=== PATIENT | female | born 1980 | race American Indian/Alaskan Native ===

== ENCOUNTER 2018-09-16 18:35 | Inpatient (IN) | payer BC ==
[2018-09-16] MEDS ORDERED: Nalbuphine 20 MG/ML 1 ML Syringe IVPUSH PRN (19:12)
[2018-09-16] MEDS ORDERED: Ondansetron 4 MG/2 ML SDV IVPUSH PRN ×2 (19:12→23:04)
[2018-09-16] MEDS ORDERED: Lidocaine 1% 50 ML MDV INJECT ONE (19:12)
[2018-09-16] MEDS ORDERED: Sodium Chloride 0.9% 10 ML Syringe FLUSH PRN (19:12)
[2018-09-16] MEDS ORDERED: Oxytocin/Lactated Ringers 10 UNIT/1,000 ML BAG IV SCH ×2 (19:15→21:46)
[2018-09-16] MEDS ORDERED: Ampicillin 2 GM in Sodium Chloride 0.9% 100 ML IV ONE (19:30)
[2018-09-16] MEDS: Lactated Ringers 1,000 ML IV SCH ×2 (19:34→23:47)
[2018-09-16] MEDS ORDERED: fentaNYL 100 MCG/2 ML SDV EPIDUR PRN (23:04)
[2018-09-16] MEDS ORDERED: diphenhydrAMINE 50 MG/ML SDV IVPUSH PRN (23:04)
[2018-09-16] MEDS ORDERED: ePHEDrine 50 MG/ML SDV IVPUSH PRN (23:04)
[2018-09-16] MEDS ORDERED: fentaNYL/Bupivacaine-NS 2 MCG/ML-0.125%/PF 100 ML Bag EPIDUR ONE (23:04)
[2018-09-16] MEDS ORDERED: Ampicillin 1 GM in Sodium Chloride 0.9% 100 ML IV SCH (23:30)
--- NOTE | 2018-09-16 23:40 | PCM.PREANE ---
Preanesthetic Assessment - Anesthesia/Transfusion/Family Hx Anesthesia History: Prior Anesthesia Without Reaction Family History of Anesthesia Reaction: No Transfusion History: No Prior Transfusion(s) - Review of Systems General: No Symptoms Pulmonary: No Symptoms Cardiovascular: No Symptoms Gastrointestinal: No Symptoms (Heart burn at night following eating. ) Neurological: No Symptoms Other: Reports: Depression (Bipolar, history of drug abuse. ) - Physical Assessment O2 Sat by Pulse Oximetry: 98 Respiratory Rate: 16 Vital Signs: Last Vital Signs Temp 36.2 C 09/16/18 19:12 Pulse 62 09/16/18 19:12 Resp 16 09/16/18 19:12 BP 121/59 L 09/16/18 19:12 Pulse Ox Height: 1.73 m Weight: 96.026 kg ASA Class: 2 Mental Status: Alert & Oriented x3 Airway Class: Mallampati = 1 Dentition: Reports: Normal Dentition Thyro-Mental Finger Breadths: 3 Mouth Opening Finger Breadths: 3 ROM/Head Extension: Full Lungs: Clear to Auscultation, Normal Respiratory Effort Cardiovascular: Regular Rate, Regular Rhythm - Lab Values: Laboratory Last Values WBC 4.66 K/mm3 (3.98-10.04) 09/16/18 19:25 RBC 3.77 M/mm3 (3.98-5.22) L 09/16/18 19:25 Hgb 12.1 gm/L (11.2-15.7) 09/16/18 19:25 Hct 35.9 % (34.1-44.9) 09/16/18 19:25 MCV 95.2 fl (79.4-94.8) H 09/16/18 19:25 MCH 32.1 pg (25.6-32.2) 09/16/18 19:25 MCHC 33.7 g/dl (32.2-35.5) 09/16/18 19:25 RDW Std Deviation 47.2 fL (36.4-46.3) H 09/16/18 19:25 Plt Count 231 K/mm3 (182-369) 09/16/18 19:25 MPV 10.2 fl (9.4-12.3) 09/16/18 19:25 Neut % (Auto) 68.8 % (34.0-71.1) 09/16/18 19:25 Lymph % (Auto) 24.5 % (19.3-51.7) 09/16/18 19:25 [place] % (Auto) 5.4 % (4.7-12.5) 09/16/18 19:25 Eos % (Auto) 1.1 (0.7-5.8) 09/16/18 19:25 Baso % (Auto) 0.2 % (0.1-1.2) 09/16/18 19:25 Neut # (Auto) 3.21 K/mm3 (1.56-6.13) 09/16/18 19:25 Lymph # (Auto) 1.14 K/mm3 (1.18-3.74) L 09/16/18 19:25 [place] # (Auto) 0.25 K/mm3 (0.24-0.36) 09/16/18 19:25 Eos # (Auto) 0.05 K/mm3 (0.04-0.36) 09/16/18 19:25 Baso # (Auto) 0.01 K/mm3 (0.01-0.08) 09/16/18 19:25 RPR Non-reactive (NONREACTIVE) 09/16/18 19:25 - Allergies Allergies/Adverse Reactions: Allergies Allergy/AdvReac Type Severity Reaction Status Date / Time No Known Allergies Allergy Verified 09/16/18 19:02 - Acknowledgements Anesthesia Type Planned: Epidural Pt an Appropriate Candidate for the Planned Anesthesia: Yes Alternatives and Risks of Anesthesia Discussed w Pt/Guardian: Yes Pt/Guardian Understands and Agrees with Anesthesia Plan: Yes PreAnesthesia Questionnaire - Past Health History Medical/Surgical History: Denies Medical/Surgical History Gastrointestinal History: Reports: Other (See Below) Other Gastrointestinal History: kink in the intestines HEAD CHARGER History: Reports: Psychiatric History: Reports: Bipolar, Depression Other Psychiatric History: self diagnosed - Infectious Disease History Infectious Disease History: Reports: Chicken Pox, Measles - Past Surgical History HEENT Surgical History: Reports: Oral Surgery Other HEENT Surgeries/Procedures: wisdom teeth GI Surgical History: Reports: None - SUBSTANCE USE Smoking Status *Q: Never Smoker Second Hand Smoke Exposure: No Recreational Drug Use History: Yes - HOME MEDS Home Medications: Home Meds Cholecalciferol (Vitamin D3) [Vitamin D3] 400 unit PO DAILY 09/16/18 [History] PNV95/Ferrous Fumarate/FA [ Vitamin Tablet] 1 tab PO DAILY 09/16/18 [ History] - CURRENT (IN HOUSE) MEDS Current Meds: Current Medications Diphenhydramine HCl (Benadryl) 25 mg IVPUSH Q6H PRN PRN Reason: Pruritis Ephedrine Sulfate (Ephedrine Sulfate) 5 mg IVPUSH ASDIRECTED PRN PRN Reason: Hypotension Fentanyl (Sublimaze) 100 mcg EPIDUR ONETIME PRN PRN Reason: Pain Last Admin: 09/16/18 23:37 Dose: 100 mcg Ampicillin Sodium 1 gm/ Sodium (Chloride) 100 mls @ 200 mls/hr IV Q4H ROSITA Lactated Ringer's (Ringers, Lactated) 1,000 mls @ 100 mls/hr IV ASDIRECTED ROSITA Last Admin: 09/16/18 19:34 Dose: 100 mls/hr Oxytocin/Lactated Ringer's (Pitocin In Lr 10 Units/1,000 Ml) 10 unit in 1,000 mls @ 500 mls/hr IV ASDIRECTED ROSITA Oxytocin/Lactated Ringer's (Pitocin In Lr 10 Units/1,000 Ml) 10 unit in 1,000 mls @ 12 mls/hr IV TITRATE ROSITA; Protocol Last Admin: 09/16/18 22:02 Dose: 2 munits/min, 12 mls/hr Nalbuphine HCl (Nubain) 10 mg IVPUSH Q2H PRN PRN Reason: pain Ondansetron HCl (Zofran) 4 mg IVPUSH Q4H PRN PRN Reason: Nausea/Vomiting Ondansetron HCl (Zofran) 4 mg IVPUSH ONETIME PRN PRN Reason: Nausea/Vomiting Sodium Chloride (Saline Flush) 10 ml FLUSH ASDIRECTED PRN PRN Reason: Keep Vein Open Discontinued Medications Fentanyl/Bupivacaine HCl (Wsfzutvz-Wtnxr-Fd 2 Mcg/Ml-0.125%) 100 ml EPIDUR ONETIME ONE Stop: 09/16/18 23:05 Last Admin: 09/16/18 23:37 Dose: 100 ml Ampicillin Sodium 2 gm/ Sodium (Chloride) 100 mls @ 200 mls/hr IV ONETIME ONE Stop: 09/16/18 19:59 Last Admin: 09/16/18 19:34 Dose: 200 mls/hr Lidocaine HCl (Xylocaine 1%) 50 ml INJECT ONETIME ONE Stop: 09/16/18 19:13
--- NOTE | 2018-09-17 00:47 | PCM.SN ---
- Free Text/Narrative Note: Suzanne is a 38-year-old multigravida female who came in labor and delivery on the evening of 09/16/2018 with spontaneous rupture membranes in early labor. She is 39-1/7 weeks with an MATTHEW of 09/23/2018. Patient was given a small amount of Pitocin to augment her labor. She underwent epidural analgesia placement and received good results from this. She went on to complete cervical dilation and at 0022 hours on 09/17/2018 she delivered a viable, taylor, female infant with Apgars of 8 and 9, weight of 3220 g (7 pounds 12.2 ounces), a length of 20.5 cm in the left occiput anterior position. She delivered over an essentially intact perineum. Baby was completely delivered, placed on mom's abdomen and nose and mouth were bulb suctioned. Cord was allowed to pulsate 1 minute and then was clamped 2 and cut by the patient's . Is noted to have a true knot in the cord. 3 vessels were noted in the cord. Pitocin was started IV to facilitate increase in uterine tone and decreased likelihood of bleeding. The perineum was evaluated and no significant lacerations were noted. The placenta delivered at 0028 hours on 09/17/2018 in a Biggs presentation, appeared intact and complete and was discarded per patient desire. 100 mL. Patient plans to breast-feed. Condition: Good
--- NOTE | 2018-09-17 01:07 | PCM.LDHP ---
L&D History of Present Illness - General Date of Service: 09/16/18 Admit Problem/Dx: Patient Status Order with Admit Dx/Problem 09/16/18 19:12 Patient Status [ADT] Routine Admission Diagnosis/Problem Admission Diagnosis/Problem Normal labor 09/17/18 01:00 38 year old 7 para 3033 Serbian female admitted at 39-0/7 weeks gestational age with an MATTHEW of 09/23/2018 in active labor with gross spontaneous rupture membranes. Source of Information: Patient History Limitations: Reports: No Limitations - History of Present Illness Introduction:: Suzanne 38-year-old 7 para 3033. Female who just yesterday transferred her care from [facility] in [place], [place] to [facility] in [place]. She is seen in labor and delivery on the evening of 09/16/2018 with reported gross spontaneous rupture membranes. Patient is noted to have a large amount of vaginal fluid which is clear in nature. She is denny about every 10 minutes upon admission. OB/hx per chart and history shows 3 normal spontaneous vaginal deliveries. She labored for 18 hours with first child, 2 hours with her second child in 4 hours with her third child. Care was with [facility] in [place], [place].She apparently has had regular care. Has shown good fundal height growth. Laboratory testing shows negative antibody screen. She is rubella immune. RPR is nonreactive. Urine culture was negative. Hepatitis B surface antigen and HIV assay were both negative. Second trimester laboratory tests showed hemoglobin is 11.4. Platelets were 226,000. One-hour GTT was normal at 115 mg/dL group B strep was positive and patient is not allergic to penicillin. Allergies none Medications: 1. vitamins 2. Vitamin D drops. Past medical history: 1. History of bipolar disorder 2. History of depression. 3. 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 Father is alive with history of lymphomatreated and appears to be cured. 4 brothers and 1 sister alive and well. Maternal grandfather is secondary to heart disease and myocardial infarction in his 70s. Maternal grandmother is no further medical issues. Paternal grandfather is deceasedwas murdered. Paternal grandmother is alive with diabetes and history of DVT in her leg. Social history: Patient is , [id number] mom. She is not using any significant loss of alcohol, drugs or tobacco at present. She had her Gregory, lives in [place], [place]. Review of systems: In general patient has no complaints. Is having contractions as described above and has spontaneous rupture membranes. Skin: Negative Lungs: No infectious symptoms or shortness of breath Cardiovascular: No chest pain or exercise intolerance Breasts: No lumps, changes in size, pain, dimpling, discharge or axillary or supraclavicular concerns. GI: Negative : Negative Musculoskeletal: Negative Neurological: Negative In general the patient is well-developed, well-nourished, pleasant female of stated age in no acute distress. Skin is warm dry without lesions. HEENT, neck and back within normal limits. Lungs are clear with good breath sounds in all lung white. Cardiovascular exam shows regular and rhythm without murmurs. Abdomen is flat, soft, nontender without masses or organomegaly. Positive bowel sounds are noted. No inguinal lymphadenopathy or hernias are noted. Genital exam upon admission shows cervix to be 3 cm, 80% effaced, soft, anterior , -2 station.. Extremities and neurological exam are grossly within normal limits. Pain Score: 8 - Related Data Allergies/Adverse Reactions: Allergies Allergy/AdvReac Type Severity Reaction Status Date / Time No Known Allergies Allergy Verified 09/16/18 19:02 Home Medications: Home Meds Cholecalciferol (Vitamin D3) [Vitamin D3] 400 unit PO DAILY 09/16/18 [History] PNV95/Ferrous Fumarate/FA [ Vitamin Tablet] 1 tab PO DAILY 09/16/18 [ History] Past Medical History - Past Health History Medical/Surgical History: Denies Medical/Surgical History Gastrointestinal History: Reports: Other (See Below) Other Gastrointestinal History: kink in the intestines [employer] History: Reports: Psychiatric History: Reports: Bipolar, Depression Other Psychiatric History: self diagnosed - Infectious Disease History Infectious Disease History: Reports: Chicken Pox, Measles - Past Surgical History HEENT Surgical History: Reports: Oral Surgery Other HEENT Surgeries/Procedures: wisdom teeth GI Surgical History: Reports: None Social & Family History - Family History Family Medical History: Noncontributory - Tobacco Use Smoking Status *Q: Never Smoker Second Hand Smoke Exposure: No - Caffeine Use Caffeine Use: Reports: Soda - Recreational Drug Use Recreational Drug Use: Yes Drug Use in Last 12 Months: No H&P Review of Systems - Review of Systems: Review Of Systems: See Below L&D Exam - Exam Exam: See Below - Vital Signs Vital Signs: Last Vital Signs Temp 36.2 C 09/16/18 19:12 Pulse 62 09/16/18 19:12 Resp 16 09/16/18 23:40 BP 121/59 L 09/16/18 19:12 Pulse Ox 98 09/16/18 23:40 Weight: 96.026 kg - Patient Data Lab Results Last 24 hrs: Laboratory Results - last 24 hr 09/16/18 09/16/18 Range/Units 19:25 19:25 WBC 4.66 (3.98-10.04) K/mm3 RBC 3.77 L (3.98-5.22) M/mm3 Hgb 12.1 (11.2-15.7) gm/L Hct 35.9 (34.1-44.9) % MCV 95.2 H (79.4-94.8) fl MCH 32.1 (25.6-32.2) pg MCHC 33.7 (32.2-35.5) g/dl RDW Std Deviation 47.2 H (36.4-46.3) fL Plt Count 231 (182-369) K/mm3 MPV 10.2 (9.4-12.3) fl Neut % (Auto) 68.8 (34.0-71.1) % Lymph % (Auto) 24.5 (19.3-51.7) % [place] % (Auto) 5.4 (4.7-12.5) % Eos % (Auto) 1.1 (0.7-5.8) Baso % (Auto) 0.2 (0.1-1.2) % Neut # (Auto) 3.21 (1.56-6.13) K/mm3 Lymph # (Auto) 1.14 L (1.18-3.74) K/mm3 [place] # (Auto) 0.25 (0.24-0.36) K/mm3 Eos # (Auto) 0.05 (0.04-0.36) K/mm3 Baso # (Auto) 0.01 (0.01-0.08) K/mm3 RPR Non-reactive (NONREACTIVE) Result Diagrams: 09/16/18 19:25 Problem List Initiated/Reviewed/Updated: Yes Orders Last 24hrs: Active Orders 24 hr Category Date Time Status Patient Status Manage Transfer [TRANSFER] Routine ADT 09/17/18 00:41 Ordered Patient Status [ADT] Routine ADT 09/16/18 19:12 Active Activity as Tolerated [RC] PFP Care 09/16/18 19:12 Active Communication Order [RC] ASDIRECTED Care 09/16/18 19:12 Active Heart Tones [RC] ASDIRECTED Care 09/16/18 19:12 Active Notify Provider [RC] ASDIRECTED Care 09/16/18 23:04 Active Notify Provider [RC] PFP Care 09/16/18 19:12 Active Notify Provider [RC] PRN Care 09/16/18 19:12 Active Peripheral IV Care [RC] . DIRECTED Care 09/16/18 19:12 Active Vital Signs [RC] PER UNIT ROUTINE Care 09/16/18 19:12 Active Regular Diet [DIET] Diet 09/16/18 Dinner Active Ampicillin 1 gm Med 09/16/18 23:30 Active Sodium Chloride 0.9% [Normal Saline] 100 ml IV Q4H Lactated Ringers [Ringers, Lactated] 1,000 ml Med 09/16/18 19:15 Active IV ASDIRECTED Nalbuphine [Nubain] Med 09/16/18 19:12 Active 10 mg IVPUSH Q2H PRN Ondansetron [Zofran] Med 09/16/18 23:04 Active 4 mg IVPUSH ONETIME PRN Ondansetron [Zofran] Med 09/16/18 19:12 Active 4 mg IVPUSH Q4H PRN Oxytocin/Lactated Ringers [Pitocin in LR 10 Units/1,000 Med 09/16/18 19:15 Active ML] 10 unit in 1,000 ml IV ASDIRECTED Oxytocin/Lactated Ringers [Pitocin in LR 10 Units/1,000 Med 09/16/18 21:46 Active ML] 10 unit in 1,000 ml IV TITRATE Sodium Chloride 0.9% [Saline Flush] Med 09/16/18 19:12 Active 10 ml FLUSH ASDIRECTED PRN diphenhydrAMINE [Benadryl] Med 09/16/18 23:04 Active 25 mg IVPUSH Q6H PRN ePHEDrine [ePHEDrine sulfate] Med 09/16/18 23:04 Active 5 mg IVPUSH ASDIRECTED PRN fentaNYL [Sublimaze] Med 09/16/18 23:04 Active 100 mcg EPIDUR ONETIME PRN Electronic Heart Tones Ext w TOCO [WOMSER] Oth 09/16/18 19:12 Ordered Routine Electronic Heart Tones Internal [WOMSER] Per Unit Oth 09/16/18 19:12 Ordered Routine Peripheral IV Insertion Adult [OM.PC] Routine Oth 09/16/18 19:12 Ordered Resuscitation Status Routine Resus Stat 09/16/18 19:12 Ordered Medication Orders Diphenhydramine HCl (Benadryl) 25 mg IVPUSH Q6H PRN PRN Reason: Pruritis Ephedrine Sulfate (Ephedrine Sulfate) 5 mg IVPUSH ASDIRECTED PRN PRN Reason: Hypotension Fentanyl (Sublimaze) 100 mcg EPIDUR ONETIME PRN PRN Reason: Pain Last Admin: 09/16/18 23:37 Dose: 100 mcg Ampicillin Sodium 1 gm/ Sodium (Chloride) 100 mls @ 200 mls/hr IV Q4H [facility] Last Admin: 09/16/18 23:47 Dose: 200 mls/hr Lactated Ringer's (Ringers, Lactated) 1,000 mls @ 100 mls/hr IV ASDIRECTED ROSITA Last Admin: 09/16/18 23:47 Dose: 100 mls/hr Infusion: 09/16/18 23:47 Dose: 100 mls/hr Admin: 09/16/18 19:34 Dose: 100 mls/hr Oxytocin/Lactated Ringer's (Pitocin In Lr 10 Units/1,000 Ml) 10 unit in 1,000 mls @ 500 mls/hr IV ASDIRECTED ROSITA Oxytocin/Lactated Ringer's (Pitocin In Lr 10 Units/1,000 Ml) 10 unit in 1,000 mls @ 12 mls/hr IV TITRATE ROSITA; Protocol Last Admin: 09/16/18 22:02 Dose: 2 munits/min, 12 mls/hr Nalbuphine HCl (Nubain) 10 mg IVPUSH Q2H PRN PRN Reason: pain Ondansetron HCl (Zofran) 4 mg IVPUSH Q4H PRN PRN Reason: Nausea/Vomiting Ondansetron HCl (Zofran) 4 mg IVPUSH ONETIME PRN PRN Reason: Nausea/Vomiting Sodium Chloride (Saline Flush) 10 ml FLUSH ASDIRECTED PRN PRN Reason: Keep Vein Open Assessment/Plan Comment:: 1. 39-0/7 week intrauterine upon admission with early labor and gross spontaneous rupture membranes. 2. Group B strep positive status with need for ampicillin prophylaxis per protocol 3. Patient plans to breast-feed 4. Repeat previous vaginal deliveries. 5. Remote history of drug use but has now been sober times last 12 years with the use of Suboxone. 6. Rubella titer shows immunity. Plan: 1. Anticipate normal spontaneous vaginal delivery. Routine labor care 2. Group B strep prophylaxis that ampicillin per protocol 3. Epidural when necessary for pain 4. Routine monitoring. 5. Breast feeding support per routine.
[2018-09-17] MEDS ORDERED: Docusate Sodium 100 MG Cap PO PRN (01:37)
[2018-09-17] MEDS ORDERED: Benzocaine/Menthol 20%-0.5% Spray 56 GM Canister TOP PRN (01:37)
[2018-09-17] MEDS ORDERED: Lanolin 100% Cream 7 GM Tube TOP PRN (01:37)
[2018-09-17] MEDS ORDERED: Acetaminophen 325 MG Tab PO PRN (01:37)
[2018-09-17] MEDS ORDERED: Witch Hazel Medicated Pads 40/Jar TOP PRN (01:37)
--- NOTE | 2018-09-17 05:20 | PCM.SN ---
- Free Text/Narrative Note: note: Patient is doing well in the period. Minimal lochia, voiding well, ambulated without problems. Nursing without concerns. Patient is afebrile, vital signs are stable Abdomen is flat, soft, uterus is below the umbilicus and is firm and nontender. Legs are nontender. Assessment: recovery going well. Plan: Routine care. Patient be discharged home within the next 24-48 hours.
[2018-09-17] MEDS: Ibuprofen 600 MG Tab PO PRN ×3 (06:33→16:52)
--- NOTE | 2018-09-17 07:42 | PCM48HPAN ---
Post Anesthesia Note - EVALUATION WITHIN 48HRS OF ANESTHETIC Vital Signs in Normal Range: Yes Patient Participated in Evaluation: Yes Respiratory Function Stable: Yes Airway Patent: Yes Cardiovascular Function Stable: Yes Hydration Status Stable: Yes Pain Control Satisfactory: Yes Nausea and Vomiting Control Satisfactory: Yes Mental Status Recovered: Yes (no complaints) Pulse Rate: 51 Resp Rate: 18 Temperature: 97.9 F Blood Pressure: 101/35
[2018-09-17] MEDS ORDERED: Bupivacaine 0.25% 10 ML SDV ONE (11:00)
[2018-09-17] MEDS ORDERED: Oxymetazoline 0.05% Nasal Spray 30 ML Bottle NASBOTH PRN (12:47)
--- NOTE | 2018-09-18 07:30 | PCM.PNPP ---
- General Info Date of Service: 09/18/18 Functional Status: Reports: Pain Controlled, Tolerating Diet, Ambulating, Urinating - Review of Systems General: Reports: No Symptoms Pulmonary: Reports: No Symptoms Cardiovascular: Reports: No Symptoms Gastrointestinal: Reports: No Symptoms Genitourinary: Reports: No Symptoms Musculoskeletal: Reports: No Symptoms Neurological: Reports: No Symptoms - Patient Data Vital Signs - Most Recent: Last Vital Signs Temp 36.3 C 09/18/18 04:29 Pulse 56 L 09/18/18 04:29 Resp 16 09/18/18 04:29 BP 102/53 L 09/18/18 04:56 Pulse Ox 97 09/18/18 04:29 Weight - Most Recent: 96.026 kg I&O - Last 24 Hours: Intake & Output 09/17/18 09/18/18 09/18/18 22:59 06:59 14:59 Intake Total 240 180 Balance 240 180 Med Orders - Current: Current Medications Acetaminophen (Tylenol) 650 mg PO Q4H PRN PRN Reason: mild pain or fever Benzocaine/Menthol (Dermoplast Pain Relief [place]) 0 gm TOP ASDIRECTED PRN PRN Reason: Perineal Comfort Measure Docusate Sodium (Colace) 100 mg PO BID PRN PRN Reason: Constipation Emollient Ointment (Lansinoh Hpa) 0 gm TOP ASDIRECTED PRN PRN Reason: Sore Nipples Ibuprofen (Motrin) 600 mg PO Q4H PRN PRN Reason: Mild pain or fever Last Admin: 09/17/18 16:52 Dose: 600 mg Oxymetazoline HCl (Nasal Decongestant [place]) 0 ml NASBOTH BID PRN PRN Reason: Allergies Last Admin: 09/17/18 14:12 Dose: 2 spray Witch Rajwinder (Tucks) 1 pad TOP ASDIRECTED PRN PRN Reason: Pain Discontinued Medications Diphenhydramine HCl (Benadryl) 25 mg IVPUSH Q6H PRN PRN Reason: Pruritis Ephedrine Sulfate (Ephedrine Sulfate) 5 mg IVPUSH ASDIRECTED PRN PRN Reason: Hypotension Fentanyl (Sublimaze) 100 mcg EPIDUR ONETIME PRN PRN Reason: Pain Last Admin: 09/16/18 23:37 Dose: 100 mcg Fentanyl/Bupivacaine HCl (Ldyfbqwc-Xbavg-Im 2 Mcg/Ml-0.125%) 100 ml EPIDUR ONETIME ONE Stop: 09/16/18 23:05 Last Admin: 09/16/18 23:37 Dose: 100 ml Ampicillin Sodium 2 gm/ Sodium (Chloride) 100 mls @ 200 mls/hr IV ONETIME ONE Stop: 09/16/18 19:59 Last Admin: 09/16/18 19:34 Dose: 200 mls/hr Ampicillin Sodium 1 gm/ Sodium (Chloride) 100 mls @ 200 mls/hr IV Q4H ROSITA Last Admin: 09/16/18 23:47 Dose: 200 mls/hr Lactated Ringer's (Ringers, Lactated) 1,000 mls @ 100 mls/hr IV ASDIRECTED ROSITA Last Admin: 09/16/18 23:47 Dose: 100 mls/hr Oxytocin/Lactated Ringer's (Pitocin In Lr 10 Units/1,000 Ml) 10 unit in 1,000 mls @ 500 mls/hr IV ASDIRECTED ROSITA Oxytocin/Lactated Ringer's (Pitocin In Lr 10 Units/1,000 Ml) 10 unit in 1,000 mls @ 12 mls/hr IV TITRATE ROSITA; Protocol Last Titration: 09/17/18 00:25 Dose: 999 munits/min, 5,994 mls/hr Lidocaine HCl (Xylocaine 1%) 50 ml INJECT ONETIME ONE Stop: 09/16/18 19:13 Nalbuphine HCl (Nubain) 10 mg IVPUSH Q2H PRN PRN Reason: pain Ondansetron HCl (Zofran) 4 mg IVPUSH Q4H PRN PRN Reason: Nausea/Vomiting Ondansetron HCl (Zofran) 4 mg IVPUSH ONETIME PRN PRN Reason: Nausea/Vomiting Sodium Chloride (Saline Flush) 10 ml FLUSH ASDIRECTED PRN PRN Reason: Keep Vein Open - Infant Interaction Disposition, : in Room with Family Infant Interaction: Holding Infant Feeding: Breastfed Infant; Nursed Well Support Person: - Recovery Exam Fundal Tone: Firm Fundal Level: At Umbilicus Fundal Placement: Midline Lochia Amount: Scant, Small Lochia Color: Rubra/Red Perineum Description: Intact, Minimal Bruising/Swelling Bladder Status: Voiding Urinary Elimination: Voided - Exam General: Alert, Oriented, Cooperative GI/Abdominal Exam: Soft, Non-Tender Extremities: Normal Inspection Skin: Warm, Dry, Intact - Problem List & Annotations (1) 39 weeks gestation of SNOMED Code(s): 37027120 Code(s): Z3A.39 - 39 WEEKS GESTATION OF Status: Acute Current Visit: Yes (2) Vaginal delivery SNOMED Code(s): 569133691 Code(s): O80 - ENCOUNTER FOR FULL-TERM UNCOMPLICATED DELIVERY Status: Acute Current Visit: Yes - Problem List Review Problem List Initiated/Reviewed/Updated: Yes - My Orders Last 24 Hours: My Active Orders 09/18/18 07:29 Ready for Discharge [RC] PER UNIT ROUTINE - Assessment Assessment:: 38 y/o G7 now [id number] PPD#1 from - Plan Plan:: * Routine cares * Encourage breast feeding * Discharge home today per patient preference
--- NOTE | 2018-09-18 08:01 | PCM.DCSUM1 ---
Discharge Summary - Discharge Data Discharge Date: 09/18/18 Discharge Disposition: Home, Self-Care 01 Condition: Good - Discharge Diagnosis/Problem(s) (1) 39 weeks gestation of SNOMED Code(s): 35693760 ICD Code: Z3A.39 - 39 WEEKS GESTATION OF Status: Acute Current Visit: Yes (2) Vaginal delivery SNOMED Code(s): 413411658 ICD Code: O80 - ENCOUNTER FOR FULL-TERM UNCOMPLICATED DELIVERY Status: Acute Current Visit: Yes - Patient Summary/Data Complications: None Consults: None Recommended Follow-up Testing/Procedures: Follow up in 2-3 weeks for check Hospital Course: Patient is a 38 y/o who presented at 39 0/7 wks in labor. She made good progress and underwent an uncomplicated . See delivery note. she did well and was discharged home on PPD#1 per her preference - Patient Instructions Diet: Regular Diet as Tolerated Activity: As Tolerated Activity, Other: Pelvic Rest for 6 weeks Driving: May Drive Today Showering/Bathing: May Shower Showering/Bathing, Other: May bathe Notify Provider of: Fever, Increased Pain, Swelling and Redness, Drainage, Nausea and/or Vomiting - Discharge Plan *PRESCRIPTION DRUG MONITORING PROGRAM REVIEWED*: Not Applicable *COPY OF PRESCRIPTION DRUG MONITORING REPORT IN PATIENT RADHA: Not Applicable Home Medications: Home Meds Cholecalciferol (Vitamin D3) [Vitamin D3] 400 unit PO DAILY 09/16/18 [History] PNV95/Ferrous Fumarate/FA [ Vitamin Tablet] 1 tab PO DAILY 09/16/18 [ History] Docusate Sodium [Colace] 100 mg PO BID PRN cap 09/17/18 [Rx] Ibuprofen [Motrin] 600 mg PO Q4H PRN tablet 09/17/18 [Rx] Referrals: Mario Perales MD [Primary Care Provider] - (2-3 weeks for check ) - Discharge Summary/Plan Comment DC Time >30 min.: No - Patient Data Vitals - Most Recent: Last Vital Signs Temp 36.3 C 09/18/18 04:29 Pulse 56 L 09/18/18 04:29 Resp 16 09/18/18 04:29 BP 102/53 L 09/18/18 04:56 Pulse Ox 97 09/18/18 04:29 Weight - Most Recent: 96.026 kg I&O - Last 24 hours: Intake & Output 09/17/18 09/18/18 09/18/18 22:59 06:59 14:59 Intake Total 240 180 Balance 240 180 Med Orders - Current: Current Medications Acetaminophen (Tylenol) 650 mg PO Q4H PRN PRN Reason: mild pain or fever Benzocaine/Menthol (Dermoplast Pain Relief [place]) 0 gm TOP ASDIRECTED PRN PRN Reason: Perineal Comfort Measure Docusate Sodium (Colace) 100 mg PO BID PRN PRN Reason: Constipation Emollient Ointment (Lansinoh Hpa) 0 gm TOP ASDIRECTED PRN PRN Reason: Sore Nipples Ibuprofen (Motrin) 600 mg PO Q4H PRN PRN Reason: Mild pain or fever Last Admin: 09/17/18 16:52 Dose: 600 mg Oxymetazoline HCl (Nasal Decongestant [place]) 0 ml NASBOTH BID PRN PRN Reason: Allergies Last Admin: 09/17/18 14:12 Dose: 2 spray Witch Rajwinder (Tucks) 1 pad TOP ASDIRECTED PRN PRN Reason: Pain Discontinued Medications Diphenhydramine HCl (Benadryl) 25 mg IVPUSH Q6H PRN PRN Reason: Pruritis Ephedrine Sulfate (Ephedrine Sulfate) 5 mg IVPUSH ASDIRECTED PRN PRN Reason: Hypotension Fentanyl (Sublimaze) 100 mcg EPIDUR ONETIME PRN PRN Reason: Pain Last Admin: 09/16/18 23:37 Dose: 100 mcg Fentanyl/Bupivacaine HCl (Dojnjhhp-Wwnmp-Ov 2 Mcg/Ml-0.125%) 100 ml EPIDUR ONETIME ONE Stop: 09/16/18 23:05 Last Admin: 09/16/18 23:37 Dose: 100 ml Ampicillin Sodium 2 gm/ Sodium (Chloride) 100 mls @ 200 mls/hr IV ONETIME ONE Stop: 09/16/18 19:59 Last Admin: 09/16/18 19:34 Dose: 200 mls/hr Ampicillin Sodium 1 gm/ Sodium (Chloride) 100 mls @ 200 mls/hr IV Q4H ROSITA Last Admin: 09/16/18 23:47 Dose: 200 mls/hr Lactated Ringer's (Ringers, Lactated) 1,000 mls @ 100 mls/hr IV ASDIRECTED ROSITA Last Admin: 09/16/18 23:47 Dose: 100 mls/hr Oxytocin/Lactated Ringer's (Pitocin In Lr 10 Units/1,000 Ml) 10 unit in 1,000 mls @ 500 mls/hr IV ASDIRECTED ROSITA Oxytocin/Lactated Ringer's (Pitocin In Lr 10 Units/1,000 Ml) 10 unit in 1,000 mls @ 12 mls/hr IV TITRATE ROSITA; Protocol Last Titration: 09/17/18 00:25 Dose: 999 munits/min, 5,994 mls/hr Lidocaine HCl (Xylocaine 1%) 50 ml INJECT ONETIME ONE Stop: 09/16/18 19:13 Nalbuphine HCl (Nubain) 10 mg IVPUSH Q2H PRN PRN Reason: pain Ondansetron HCl (Zofran) 4 mg IVPUSH Q4H PRN PRN Reason: Nausea/Vomiting Ondansetron HCl (Zofran) 4 mg IVPUSH ONETIME PRN PRN Reason: Nausea/Vomiting Sodium Chloride (Saline Flush) 10 ml FLUSH ASDIRECTED PRN PRN Reason: Keep Vein Open
[2018-09-18] MEDS: Ibuprofen 600 MG Tab PO PRN (09:23)
== END 2018-09-18 12:00 | disposition home or self-care (01) | DRG 560 ==
LOC: JD.OB 18:35 → JD.OBCHECK 18:35 → JD.OB 19:12 → JD.OBCHECK 19:12 → OBSVTOIN 09-17 00:22 → JD.OB 09-17 00:23
PROVIDERS: ADMIT Obstetrics & Gynecology; ATTEND Obstetrics & Gynecology
PROC: 10E0XZZ Delivery of Products of Conception, External Approach (ICD-10-PCS; principal; 2018-09-17)
DX: O99.824 Streptococcus B carrier state complicating childbirth (principal); Z3A.39 39 weeks gestation of pregnancy; Z37.0 Single live birth
CPT/HCPCS: 01967; 36415; 59025; 59409; 85025; 86592; A9270-GY; J0290; J2590; J3010; J3490; J7030; J7120